=== PATIENT | female | born 1995 | race Caucasian/White ===

== ENCOUNTER 2023-04-20 20:26 | Outpatient (REF) | payer OTHER, SELFPAY ==
[2023-04-26 21:07] LABS: HPV Aptima Negative (Negative); Pap IG (Image Guided) Note (.)
== END 2023-04-20 20:27 | disposition home or self-care (01) ==
LOC: LAB 20:26
PROVIDERS: Visit Provider Physician Assistant
DX: R87.610 Atypical squamous cells of undetermined significance on cytologic smear of cervix (ASC-US) (principal)
CPT/HCPCS: G0145

== ENCOUNTER 2024-04-23 19:16 | Outpatient (REF) | payer OTHER, SELFPAY | END 2024-04-23 19:17 | disposition home or self-care (01) | LOC: LAB 19:16 | PROVIDERS: Visit Provider Physician Assistant | DX: Z01.419 Encounter for gynecological examination (general) (routine) without abnormal findings (principal) | CPT/HCPCS: 88175 ==

== ENCOUNTER 2025-05-07 20:17 | Outpatient (REF) | payer OTHER, SELFPAY ==
--- OUTSIDE RECORDS SUMMARY | 2025-05-07 14:54 | XMS_ITS ---
Author Name Auto Generated Organization [facility] Care Team Providers Care Sole Rougher Name Role Phone JUAN C ARCHER Attending Unavailable PROBLEMS No Problem Records Found PROCEDURES No Procedure Records Found RESULTS No Result Records Found ALLERGIES No Allergies Records Found ENCOUNTERS ADMIT/DISCHARGE ACCOUNT NUMBER ADMITTING ENCOUNTER CLASS LOCATION SOURCE 05/07/2025/ [id number] Ambulatory Building:[facility] EPIC PAYERS ENCOUNTER GUARANTOR PAYER SUBSCRIBER SOURCE 05/07/2025 TIANNA QUIÑONES: [place], [place] [address]Lvz: () Primary Insurance:[facility] Number: [id number] Date:2013-08-07 TIANNA QUIÑONES: [id number] [place] [address] [facility] EPIC
--- OUTSIDE RECORDS SUMMARY | 2025-05-07 15:00 | XMS_ITS | Encounter Summary ---
Author Organization [facility] Address [address] [facility] [place] [address] Care Team Providers Care Comb Fixer Name Role Phone Unavailable Primary Care Provider Unavailabl e Reason for Visit * Reason Comments Well Women Visit Encounter Details Date Type Department Care Team ([facility] Contact Info) Description 05/07/2025 3:00 PM EDT Office Visit [facility] [address] [place] [phone] Amee Alonzo NP [address] [facility] [place] [address] Well woman exam with routine gynecological exam; Uses control Social History Tobacco Use Types Packs/Day Years Used Date Smoking Tobacco: Never Alcohol Use Standard Drinks/Week Comments Never 0 (1 standard drink = 0.6 oz pur e alcohol) Comments No Sex and Gender Information Value Date Recorded Sex Assigned at Not on file Legal Sex Female 6:41 PM EDT Gender Identity Not on file Sexual Orientation Not on file documented as of this encounter Last Filed Vital Signs Vital Sign Reading Time Taken Comments Blood Pressure 110/64 05/07/2025 3:02 PM EDT Pulse - - Temperature - - Respiratory Rate - - Oxygen Saturation - - Inhaled Oxygen Concentration - - Weight 67.5 kg (148 lb 12.8 oz) 05/07/2025 3:02 PM EDT Height - - Body Mass Index 23.31 04/23/2024 3:12 PM EDT documented in this encounter Progress Notes * Amee Alonzo NP - 05/07/2025 3:00 PM EDT Reason for Appointment: Patient ID: Elizabeth Pham is a 29 y.o. female who presents for Well Women Visit Patient presents today for Annual Exam. MEDICATIONS Current Outpatient Medications Medication Instructions Dupixent 300 mg, Every 14 days norethindrone-ethinyl estradiol (Alyacen ) 1-35 MG-MCG tablet 1 tablet, Oral, Daily ALLERGIES No Known Allergies PROBLEMS Active Ambulatory Problems Diagnosis Date Noted No Active Ambulatory Problems Resolved Ambulatory Problems Diagnosis Date Noted No Resolved Ambulatory Problems Past Medical History: Diagnosis Date Asthma (HCC) Eczema HISTORY PAST MEDICAL HISTORY SOCIAL HISTORY Past Medical History: Diagnosis Date Asthma (HCC) Eczema Social History Tobacco Use Smoking status: Never Smokeless tobacco: Not on file Substance Use Topics Alcohol use: Never Drug use: Not on file FAMILY HISTORY No family history on file. SURGICAL HISTORY History reviewed. No pertinent surgical history. REVIEW OF SYSTEMS Review of Systems: Review of Systems Constitutional: Negative. HENT: Negative. Eyes: Negative. Respiratory: Negative. Cardiovascular: Negative. Gastrointestinal: Negative. Genitourinary: Negative. Musculoskeletal: Negative. Skin: Negative. Neurological: Negative. All other systems reviewed and are negative. Hematological: Negative. Endocrine: Negative. Allergic/Immunologic: Negative. OBJECTIVE Objective: Physical Exam Constitutional: Appearance: Normal appearance. She is well-developed. Genitourinary: Vulva normal. Breasts: Breasts are soft. Right: Normal. Left: Normal. Cardiovascular: Rate and Rhythm: Normal rate and regular rhythm. Pulmonary: Effort: Pulmonary effort is normal. Breath sounds: Normal breath sounds. Abdominal: General: Bowel sounds are normal. There is no distension. Palpations: Abdomen is soft. Tenderness: There is no abdominal tenderness. There is no guarding or rebound. Musculoskeletal: General: No swelling. Normal range of motion. Right lower leg: No edema. Left lower leg: No edema. Neurological: Mental Status: She is alert and oriented to person, place, and time. Skin: General: Skin is warm and dry. Psychiatric: Mood and Affect: Mood normal. Behavior: Behavior normal. Vitals and nursing note reviewed. Exam conducted with a drill sharpener operator present. Vitals: Estimated body mass index is 23.31 kg/m?? as calculated from the following: Height as of 04/23/24: 5' 7 . Weight as of this encounter: 148 lb 12.8 oz. BP: 110/64 Patient's last menstrual period was 04/25/2025. ASSESSMENT & PLAN ICD-10-CM 1. Well woman exam with routine gynecological exam Z01.419 Pap Smear HPV DNA probe, amplified 2. Uses control Z78.9 norethindrone-ethinyl estradiol (Alyacen ) 1-35 MG-MCG tablet Annual Exam: Patient presents today for an annual exam. Patient states she is doing well and has no complaints. Pap was obtained without difficulty. Refill on control sent to pharmacy. Orders Placed This Encounter Procedures HPV DNA probe, amplified Follow Up: Patient is to return in one year for annual unless needed otherwise. Documented by Johnna Agee LPN on behalf of: Amee Alonzo NP documented in this encounter Plan of Treatment Upcoming Encounters Date Type Department Care Team (Late st Contact Info) Description 05/13/2026 4:00 PM EDT Procedure Visit [facility] [address] [place] [phone] Kevin Lundberg DO [address] [place] [address] Scheduled Orders Name Type Priority Associated Diagnoses Orde r Schedule Pap Smear Pathology and Cytology Routine Well woman exam with routine gynecological exam Ordered: 05/07/2025 HPV DNA probe, amplified Microbiology Routine Well woman exam with routine gynecological exam Ordered: 05/07/2025 documented as of this encounter Procedures Procedure Name Priority Date/Time Associated Diagnosis Comments PAP SMEAR Routine 04/23/2024 12:00 AM EDT PAP SMEAR Routine 04/20/2023 12:00 AM EDT documented in this encounter Results * Pap Smear (04/23/2024 12:00 AM EDT) Swab Cervical swab / Unknown [facility] ORDERABLES Final Re sult EXTERNAL LAB * Pap Smear (04/20/2023 12:00 AM EDT) Swab Cervical swab / Unknown us [facility] ORDERABLES Final Re sult EXTERNAL LAB documented in this encounter Visit Diagnoses Diagnosis Well woman exam with routine gynecological exam Routine gynecological examination Uses control documented in this encounter
--- OUTSIDE RECORDS SUMMARY | 2025-05-07 20:21 | XMS_ITS | Encounter Summary ---
Author Organization [facility] Address [address] [place] [address] Care Team Providers Care Clerical Dentist Assistant Name Role Phone Unavailable Primary Care Provider Unavailabl e Encounter Details Date Type Department Care Team (Latest Contact Info) Description 04/30/2025 Travel Social History Tobacco Use Types Packs/Day Years [...] on file documented as of this encounter Plan of Treatment Upcoming Encounters Date Type Department Care Team (Late st Contact Info) Description 05/13/2026 4:00 PM EDT Procedure Visit [facility] [address] [place] [phone] Kevin Lundberg DO [address] [facility] [place] [address] documented as of this encounter Visit Diagnoses Not on filedocumented in this encounter
--- OUTSIDE RECORDS SUMMARY | 2025-05-07 20:21 | XMS_ITS | Encounter Summary ---
Author Organization [facility] Address [address] [place] [address] Care Team Providers Care Quality Assurance Name Role Phone Unavailable Primary Care Provider Unavailabl e Encounter Details Date Type Department Care Team (Late Contact Info) Description 04/19/2023 Abstract [facility] [address] [address] Yanni Pritchard PA [address] [place], [facility] Social History Tobacco Use Types Packs/Day Years Used Date Smoking Tobacco: Never Tobacco Cessation:Counseling Given: Not Answered Alcohol Use Standard Drinks/Week Comments Never 0 (1 standard drink = 0.6 oz pur e alcohol) Comments Unknown Sex and Gender Information Value Date Recorded Sex Assigned at Not on file Legal Sex Female 6:41 PM EDT Gender Identity Not on file Sexual Orientation Not on file documented as of this encounter Plan of Treatment Upcoming Encounters Date Type Department Care Team (Late Contact Info) Description 05/13/2026 4:00 PM EDT Procedure Visit [facility] [address] [address] Kevin Lundberg DO [address] [place] [address] Dr [place], [facility] documented as of this encounter Visit Diagnoses Not on filedocumented in this encounter
--- OUTSIDE RECORDS SUMMARY | 2025-05-07 20:21 | XMS_ITS | Clinical Summary ---
Author Organization [facility] Address [address] [facility] [place] [address] Care Team Providers Care Material Planning Analyst Name Role Phone Unavailable Primary Care Provider Unavailabl e Allergies No known active allergies Medications Dupixent 300 MG/2ML injection Inject 300 mg under the skin every 14 (fourteen) days. 3 Active norethindrone-e thinyl estradiol (Alyacen 1/35) 1-35 MG-MCG tabletIndicatio ns:Uses control Take 1 tablet by mouth Daily 84 tablet 3 5 Active Alyacen 1/35 1-35 MG-MCG tabletIndicatio ns:Uses control TAKE 1 TABLET BY MOUTH EVERY DAY 84 tablet 3 5 05/07/20 25 Discontinu ed(Reorder ) Encounters Date Type Department Care Team Description 05/07/2025 3:00 PM EDT Office Visit [facility] [address] [place] [phone] Amee Alonzo NP Well woman exam with routine gynecological exam; Uses control 05/07/2025 Bamboo flowsheet [facility] [address] [place] [phone] Amee Alonzo NP 04/30/2025 Travel from Last 3 Months Family History Relation Name Status Comments Brother 2, healthy Daughter 1, healthy Father Alive Mother Alive Social History Tobacco Use Types Packs/Day Years [...] on file Sexual Orientation Not on file Last Filed Vital Signs Vital Sign Reading Time Taken Comments Blood Pressure 110/64 05/07/2025 3:02 PM EDT Pulse - - Temperature - - Respiratory Rate - - Oxygen Saturation - - Inhaled Oxygen Concentration - - Weight 67.5 kg (148 lb 12.8 oz) 05/07/2025 3:02 PM EDT Height 170.2 cm (5' 7 ) 04/23/2024 3:12 PM EDT Body Mass Index 23.31 04/23/2024 3:12 PM EDT Plan of Treatment Upcoming Encounters Date Type Department Care Team (Late st Contact Info) Description 05/13/2026 4:00 PM EDT Procedure Visit [facility] [address] [place] [phone] Kevin Lundberg DO [address] [facility] [facility] [place] [address] Health Maintenance Due Date Last Done Comments HPV/Cotest 2024 Influenza Vaccine (#1) 2025 Cervical Cancer Screening 04/23/2027 Pap Smear 04/23/2027 04/23/2024, 04/20/2023 Procedures Procedure Name Priority Date/Time Associated Diagnosis Comments PAP SMEAR Routine 04/23/2024 12:00 AM EDT from Last 3 Months or Most Recently Relevant to Health Maintenance Results * Pap Smear (04/23/2024 12:00 AM EDT) Swab Cervical swab / Unknown us [facility] ORDERABLES Final Re sult EXTERNAL LAB from Last 3 Months or Most Recently Relevant to Health Maintenance Insurance [facility]
== END 2025-05-07 20:18 | disposition home or self-care (01) ==
LOC: LAB 20:17
PROVIDERS: Visit Provider Nurse Practitioner Family
DX: Z01.419 Encounter for gynecological examination (general) (routine) without abnormal findings (principal)
CPT/HCPCS: 87624; 88175